=== PATIENT | male | born 1960 | race African-American/Black ===

== ENCOUNTER 2022-06-12 11:52 | Inpatient (IN) | payer OTHER ==
[2022-06-12 13:55] VITALS: BMI 20.6
[2022-06-12] MEDS ORDERED: LOPERAMIDE HCL 2 MG CAPSULE PO PRN (15:53)
[2022-06-12] MEDS ORDERED: BENZOCAINE/MENTHOL (CHLORASEPTIC ) LOZENGE MM PRN (15:53)
[2022-06-12] MEDS ORDERED: MAGNESIUM HYDROX 2400MG/30ML ORAL SUSPENSION 30 ML CUP PO PRN (15:53)
[2022-06-12] MEDS ORDERED: P-EPHED 60MG/TRIPROLIDI 2.5MG TABLET PO PRN (15:53)
[2022-06-12] MEDS ORDERED: guaiFENesin 200 MG/10 ML 10 ML UNIT-DOSE CUPS PO PRN (15:53)
[2022-06-12] MEDS ORDERED: ACETAMINOPHEN 325 MG TABLET (FP) PO PRN (15:53)
[2022-06-12] MEDS ORDERED: MAG HYDROX/AL HYDROX/SIMETH 30 ML UNIT-DOSE CUP PO PRN (15:53)
[2022-06-12] MEDS ORDERED: IBUPROFEN 400 MG TABLET (FP) PO PRN (15:53)
[2022-06-12] MEDS ORDERED: POLYETHYLENE GLYCOL (HEALTHYLAX) 3350 17 GM PACKET PO PRN (15:53)
[2022-06-12] MEDS ORDERED: TUBERCULIN PPD 5 TU/0.1ML VIAL ID ONE (19:35)
[2022-06-12] MEDS ORDERED: cloNIDine HCL 0.1 MG TABLET PO PRN (20:38)
[2022-06-12] MEDS: THIAMINE HCL 100 MG TABLET (FP) PO SCH (21:23)
[2022-06-12] MEDS: MELATONIN 5 MG TABLETS PO SCH (21:23)
[2022-06-12] MEDS: hydrALAZINE HCL 10 MG TABLET PO SCH (22:35)
[2022-06-12] MEDS: SACUBITRIL/VALSARTAN 49 MG-51 MG TABLET PO SCH (22:35)
[2022-06-12 23:50] LABS: URINE APPEARANCE CLEAR; URINE BILIRUBIN NEGATIVE (NEGATIVE); URINE COLOR YELLOW; URINE GLUCOSE (UA) NEGATIVE (NEGATIVE); URINE KETONE NEGATIVE (NEGATIVE); URINE LEUK ESTERASE NEGATIVE (NEGATIVE); URINE NITRITE NEGATIVE (NEGATIVE); URINE PROTEIN TRACE (NEGATIVE)
[2022-06-13] MEDS: hydrOXYzine PAMOATE 25 MG CAPSULE (FP) PO PRN (03:16)
[2022-06-13] MEDS: hydrALAZINE HCL 10 MG TABLET PO SCH ×3 (05:50→21:55)
[2022-06-13] MEDS: PRENATAL VITAMINS W/ FOLIC ACID TABLET (FP) PO SCH (09:59)
[2022-06-13] MEDS: ASPIRIN COATED 81 MG TABLET.EC PO SCH (09:59)
[2022-06-13] MEDS: SACUBITRIL/VALSARTAN 49 MG-51 MG TABLET PO SCH ×2 (10:00→21:07)
[2022-06-13] MEDS: NICOTINE 7 MG/24 HOURS TOPICAL PATCH TD SCH (10:00)
[2022-06-13] MEDS: FUROSEMIDE 20 MG TABLET (FP) PO SCH (10:00)
[2022-06-13] MEDS: AMMONIUM LACTATE 12% LOTION 225 GM BOTTLE TP SCH (10:01)
[2022-06-13 13:33] LABS: HEMATOCRIT 40.3 % (35.4-49); MCH 28.4 pg (25.7-33.7); MCHC 32.2 g/dl (32.0-35.9); MEAN CELL VOLUME 88.2 fl (80-96); MEAN PLT VOLUME 10.1 fl (7.5-11.1); PLATELET COUNT 214 10^3/uL (134-434); RBC 4.57 M/mm3 (4.00-5.60); RDW 13.2 % (11.9-15.9); WHITE BLOOD COUNT 5.9 K/mm3 (4.0-10.0)
[2022-06-13 13:39] LABS: SICKLE CELL SCREEN NEGATIVE (NEGATIVE)
[2022-06-13 16:15] LABS: ALBUMIN 2.7 g/dl (3.4-5.0)
[2022-06-13 16:16] LABS: BLOOD UREA NITROGEN 17.5 mg/dL (7-18)
[2022-06-13 16:19] LABS: CREATININE 0.9 mg/dL (0.55-1.3)
[2022-06-13 16:21] LABS: BILIRUBIN,TOTAL 0.2 mg/dL (0.2-1); TOT PROT 6.2 g/dl (6.4-8.2)
[2022-06-13] MEDS: THIAMINE HCL 100 MG TABLET (FP) PO SCH (21:06)
[2022-06-13] MEDS: MELATONIN 5 MG TABLETS PO SCH (21:06)
[2022-06-14] MEDS: hydrALAZINE HCL 10 MG TABLET PO SCH ×3 (06:07→21:18)
[2022-06-14] MEDS: NICOTINE 7 MG/24 HOURS TOPICAL PATCH TD SCH (09:46)
[2022-06-14] MEDS: PRENATAL VITAMINS W/ FOLIC ACID TABLET (FP) PO SCH (09:46)
[2022-06-14] MEDS: FUROSEMIDE 20 MG TABLET (FP) PO SCH (09:46)
[2022-06-14] MEDS: SACUBITRIL/VALSARTAN 49 MG-51 MG TABLET PO SCH ×2 (09:46→21:18)
[2022-06-14] MEDS: ASPIRIN COATED 81 MG TABLET.EC PO SCH (09:46)
[2022-06-14] MEDS: AMMONIUM LACTATE 12% LOTION 225 GM BOTTLE TP SCH (09:46)
[2022-06-14] MEDS ORDERED: cloNIDine HCL 0.1 MG TABLET PO ONE (10:54)
[2022-06-14] MEDS ORDERED: BUPRENORPHINE HCL 150 MCG, BUPRENORPHINE HCL 75 MCG BC ONE (10:54)
[2022-06-14] MEDS ORDERED: BUPRENORPHINE HCL 150 MCG, BUPRENORPHINE HCL 75 MCG BC PRN (10:54)
[2022-06-14] MEDS: BACLOFEN 10 MG TABLET (FP) PO SCH ×2 (13:04→21:18)
[2022-06-14] MEDS ORDERED: cloNIDine HCL 0.1 MG TABLET PO PRN (14:54)
[2022-06-14] MEDS: THIAMINE HCL 100 MG TABLET (FP) PO SCH (21:18)
[2022-06-14] MEDS: MELATONIN 5 MG TABLETS PO SCH (21:18)
[2022-06-15] MEDS ORDERED: BUPRENORPHINE HCL 150 MCG, BUPRENORPHINE HCL 75 MCG BC PRN
[2022-06-15] MEDS: hydrALAZINE HCL 10 MG TABLET PO SCH ×3 (06:02→21:12)
[2022-06-15] MEDS: BUPRENORPHINE HCL 150 MCG, BUPRENORPHINE HCL 75 MCG BC SCH ×2 (06:03→18:28)
[2022-06-15] MEDS: BACLOFEN 10 MG TABLET (FP) PO SCH ×3 (06:03→21:11)
[2022-06-15] MEDS: FUROSEMIDE 20 MG TABLET (FP) PO SCH (10:10)
[2022-06-15] MEDS: NICOTINE 7 MG/24 HOURS TOPICAL PATCH TD SCH (10:11)
[2022-06-15] MEDS: AMMONIUM LACTATE 12% LOTION 225 GM BOTTLE TP SCH (10:11)
[2022-06-15] MEDS: SACUBITRIL/VALSARTAN 49 MG-51 MG TABLET PO SCH ×2 (10:11→21:12)
[2022-06-15] MEDS: PRENATAL VITAMINS W/ FOLIC ACID TABLET (FP) PO SCH (10:11)
[2022-06-15] MEDS: ASPIRIN COATED 81 MG TABLET.EC PO SCH (10:11)
[2022-06-15] MEDS: MELATONIN 5 MG TABLETS PO SCH (21:12)
[2022-06-15] MEDS: THIAMINE HCL 100 MG TABLET (FP) PO SCH (21:12)
[2022-06-16] MEDS: hydrALAZINE HCL 10 MG TABLET PO SCH ×3 (06:27→21:10)
[2022-06-16] MEDS: BACLOFEN 10 MG TABLET (FP) PO SCH ×3 (06:27→21:11)
[2022-06-16] MEDS: BUPRENORPHINE HCL 450 MCG FILM BC SCH ×2 (06:28→17:35)
[2022-06-16] MEDS: PRENATAL VITAMINS W/ FOLIC ACID TABLET (FP) PO SCH (09:47)
[2022-06-16] MEDS: ASPIRIN COATED 81 MG TABLET.EC PO SCH (09:48)
[2022-06-16] MEDS: AMMONIUM LACTATE 12% LOTION 225 GM BOTTLE TP SCH (09:48)
[2022-06-16] MEDS: SACUBITRIL/VALSARTAN 49 MG-51 MG TABLET PO SCH ×2 (09:48→21:11)
[2022-06-16] MEDS: NICOTINE 7 MG/24 HOURS TOPICAL PATCH TD SCH (09:48)
[2022-06-16] MEDS: FUROSEMIDE 20 MG TABLET (FP) PO SCH (09:48)
[2022-06-16] MEDS: THIAMINE HCL 100 MG TABLET (FP) PO SCH (21:10)
[2022-06-16] MEDS: MELATONIN 5 MG TABLETS PO SCH (21:10)
[2022-06-16] MEDS: hydrOXYzine PAMOATE 25 MG CAPSULE (FP) PO PRN (21:11)
[2022-06-17] MEDS: hydrALAZINE HCL 10 MG TABLET PO SCH ×3 (05:52→21:13)
[2022-06-17] MEDS: BACLOFEN 10 MG TABLET (FP) PO SCH ×3 (05:52→21:12)
[2022-06-17] MEDS: BUPRENORPHINE/NALOXONE 4 MG/1 MG FILM PACKET SL SCH ×2 (05:52→18:35)
[2022-06-17] MEDS: NICOTINE 7 MG/24 HOURS TOPICAL PATCH TD SCH (09:43)
[2022-06-17] MEDS: ASPIRIN COATED 81 MG TABLET.EC PO SCH (09:43)
[2022-06-17] MEDS: FUROSEMIDE 20 MG TABLET (FP) PO SCH (09:43)
[2022-06-17] MEDS: PRENATAL VITAMINS W/ FOLIC ACID TABLET (FP) PO SCH (09:43)
[2022-06-17] MEDS: SACUBITRIL/VALSARTAN 49 MG-51 MG TABLET PO SCH ×2 (09:44→21:13)
[2022-06-17] MEDS: AMMONIUM LACTATE 12% LOTION 225 GM BOTTLE TP SCH (09:44)
[2022-06-17] MEDS: hydrOXYzine PAMOATE 25 MG CAPSULE (FP) PO PRN (16:49)
[2022-06-17] MEDS: MELATONIN 5 MG TABLETS PO SCH (21:12)
[2022-06-17] MEDS: THIAMINE HCL 100 MG TABLET (FP) PO SCH (21:12)
[2022-06-18] MEDS ORDERED: BUPRENORPHINE/NALOXONE 8 MG/2 MG FILM PACKET SL ONE ×2 (06:00→18:00)
[2022-06-18] MEDS: BACLOFEN 10 MG TABLET (FP) PO SCH ×3 (06:13→21:15)
[2022-06-18] MEDS: hydrALAZINE HCL 10 MG TABLET PO SCH ×3 (06:13→21:14)
[2022-06-18] MEDS: FUROSEMIDE 20 MG TABLET (FP) PO SCH (09:42)
[2022-06-18] MEDS: PRENATAL VITAMINS W/ FOLIC ACID TABLET (FP) PO SCH (09:42)
[2022-06-18] MEDS: SACUBITRIL/VALSARTAN 49 MG-51 MG TABLET PO SCH ×2 (09:42→21:15)
[2022-06-18] MEDS: AMMONIUM LACTATE 12% LOTION 225 GM BOTTLE TP SCH (09:43)
[2022-06-18] MEDS: NICOTINE 7 MG/24 HOURS TOPICAL PATCH TD SCH (10:20)
[2022-06-18] MEDS: ASPIRIN COATED 81 MG TABLET.EC PO SCH (11:01)
[2022-06-18] MEDS: ACYCLOVIR 400 MG TABLET PO SCH ×2 (15:43→21:15)
[2022-06-18] MEDS: THIAMINE HCL 100 MG TABLET (FP) PO SCH (21:14)
[2022-06-18] MEDS: MELATONIN 5 MG TABLETS PO SCH (21:15)
[2022-06-19] MEDS: BACLOFEN 10 MG TABLET (FP) PO SCH ×3 (05:46→21:10)
[2022-06-19] MEDS: hydrALAZINE HCL 10 MG TABLET PO SCH ×3 (05:46→21:10)
[2022-06-19] MEDS: ACYCLOVIR 400 MG TABLET PO SCH ×3 (05:46→21:10)
[2022-06-19] MEDS: PRENATAL VITAMINS W/ FOLIC ACID TABLET (FP) PO SCH (09:42)
[2022-06-19] MEDS: AMMONIUM LACTATE 12% LOTION 225 GM BOTTLE TP SCH (09:43)
[2022-06-19] MEDS: ASPIRIN COATED 81 MG TABLET.EC PO SCH (09:43)
[2022-06-19] MEDS: SACUBITRIL/VALSARTAN 49 MG-51 MG TABLET PO SCH ×2 (09:43→21:10)
[2022-06-19] MEDS: FUROSEMIDE 20 MG TABLET (FP) PO SCH (09:43)
[2022-06-19] MEDS: BUPRENORPHINE/NALOXONE 8 MG/2 MG FILM PACKET SL SCH (09:44)
[2022-06-19] MEDS: NICOTINE 7 MG/24 HOURS TOPICAL PATCH TD SCH (09:44)
[2022-06-19] MEDS: THIAMINE HCL 100 MG TABLET (FP) PO SCH (21:10)
[2022-06-19] MEDS: MELATONIN 5 MG TABLETS PO SCH (21:10)
[2022-06-20] MEDS: ACYCLOVIR 400 MG TABLET PO SCH ×3 (06:37→21:15)
[2022-06-20] MEDS: hydrALAZINE HCL 10 MG TABLET PO SCH ×3 (06:37→21:15)
[2022-06-20] MEDS: BACLOFEN 10 MG TABLET (FP) PO SCH ×3 (06:37→21:15)
[2022-06-20] MEDS: hydrOXYzine PAMOATE 25 MG CAPSULE (FP) PO PRN (06:38)
[2022-06-20] MEDS: FUROSEMIDE 20 MG TABLET (FP) PO SCH (09:58)
[2022-06-20] MEDS: SACUBITRIL/VALSARTAN 49 MG-51 MG TABLET PO SCH ×2 (09:59→21:15)
[2022-06-20] MEDS: AMMONIUM LACTATE 12% LOTION 225 GM BOTTLE TP SCH (09:59)
[2022-06-20] MEDS: ASPIRIN COATED 81 MG TABLET.EC PO SCH (09:59)
[2022-06-20] MEDS: PRENATAL VITAMINS W/ FOLIC ACID TABLET (FP) PO SCH (09:59)
[2022-06-20] MEDS: NICOTINE 7 MG/24 HOURS TOPICAL PATCH TD SCH (09:59)
[2022-06-20] MEDS: BUPRENORPHINE/NALOXONE 8 MG/2 MG FILM PACKET SL SCH (09:59)
[2022-06-20] MEDS: NICOTINE 10 MG CARTRIDGE (INHALER) IH PRN (09:59)
[2022-06-20] MEDS: THIAMINE HCL 100 MG TABLET (FP) PO SCH (21:15)
[2022-06-20] MEDS: SUVOREXANT 10 MG TABLET PO PRN (21:16)
[2022-06-21] MEDS: BACLOFEN 10 MG TABLET (FP) PO SCH ×3 (06:16→21:12)
[2022-06-21] MEDS: ACYCLOVIR 400 MG TABLET PO SCH ×3 (06:16→21:12)
[2022-06-21] MEDS: hydrALAZINE HCL 10 MG TABLET PO SCH ×3 (06:16→21:12)
[2022-06-21] MEDS: hydrOXYzine PAMOATE 25 MG CAPSULE (FP) PO PRN (06:16)
[2022-06-21] MEDS: PRENATAL VITAMINS W/ FOLIC ACID TABLET (FP) PO SCH (09:45)
[2022-06-21] MEDS: NICOTINE 7 MG/24 HOURS TOPICAL PATCH TD SCH (09:45)
[2022-06-21] MEDS: ASPIRIN COATED 81 MG TABLET.EC PO SCH (09:45)
[2022-06-21] MEDS: BUPRENORPHINE/NALOXONE 8 MG/2 MG FILM PACKET SL SCH (09:45)
[2022-06-21] MEDS: AMMONIUM LACTATE 12% LOTION 225 GM BOTTLE TP SCH (09:47)
[2022-06-21] MEDS: FUROSEMIDE 20 MG TABLET (FP) PO SCH (10:09)
[2022-06-21] MEDS: SACUBITRIL/VALSARTAN 49 MG-51 MG TABLET PO SCH ×2 (10:09→21:12)
[2022-06-21] MEDS ORDERED: CALAMINE 8% TOPICAL LOTION 177 ML BOTTLE TP PRN (11:17)
[2022-06-21] MEDS: THIAMINE HCL 100 MG TABLET (FP) PO SCH (21:12)
[2022-06-21] MEDS: SUVOREXANT 10 MG TABLET PO PRN (21:13)
[2022-06-22] MEDS: ACYCLOVIR 400 MG TABLET PO SCH ×3 (06:09→21:18)
[2022-06-22] MEDS: hydrALAZINE HCL 10 MG TABLET PO SCH ×3 (06:09→21:18)
[2022-06-22] MEDS: BACLOFEN 10 MG TABLET (FP) PO SCH ×3 (06:09→21:18)
[2022-06-22] MEDS: PRENATAL VITAMINS W/ FOLIC ACID TABLET (FP) PO SCH (09:39)
[2022-06-22] MEDS: AMMONIUM LACTATE 12% LOTION 225 GM BOTTLE TP SCH ×2 (09:39→10:13)
[2022-06-22] MEDS: SACUBITRIL/VALSARTAN 49 MG-51 MG TABLET PO SCH ×2 (11:17→21:18)
[2022-06-22] MEDS: FUROSEMIDE 20 MG TABLET (FP) PO SCH (11:17)
[2022-06-22] MEDS: NICOTINE 7 MG/24 HOURS TOPICAL PATCH TD SCH (11:17)
[2022-06-22] MEDS: ASPIRIN COATED 81 MG TABLET.EC PO SCH (11:17)
[2022-06-22] MEDS: BUPRENORPHINE/NALOXONE 8 MG/2 MG FILM PACKET SL SCH (11:18)
[2022-06-22] MEDS: SUVOREXANT 10 MG TABLET PO PRN (21:18)
[2022-06-22] MEDS: THIAMINE HCL 100 MG TABLET (FP) PO SCH (21:18)
[2022-06-23] MEDS: hydrALAZINE HCL 10 MG TABLET PO SCH ×3 (05:47→21:31)
[2022-06-23] MEDS: ACYCLOVIR 400 MG TABLET PO SCH ×3 (05:47→21:31)
[2022-06-23] MEDS: BACLOFEN 10 MG TABLET (FP) PO SCH ×3 (05:47→21:30)
[2022-06-23] MEDS: ASPIRIN COATED 81 MG TABLET.EC PO SCH (09:48)
[2022-06-23] MEDS: PRENATAL VITAMINS W/ FOLIC ACID TABLET (FP) PO SCH (09:48)
[2022-06-23] MEDS: SACUBITRIL/VALSARTAN 49 MG-51 MG TABLET PO SCH ×2 (09:50→21:31)
[2022-06-23] MEDS: AMMONIUM LACTATE 12% LOTION 225 GM BOTTLE TP SCH (09:51)
[2022-06-23] MEDS: FUROSEMIDE 20 MG TABLET (FP) PO SCH (09:51)
[2022-06-23] MEDS: NICOTINE 7 MG/24 HOURS TOPICAL PATCH TD SCH (09:52)
[2022-06-23] MEDS: BUPRENORPHINE/NALOXONE 8 MG/2 MG FILM PACKET SL SCH (09:52)
[2022-06-23] MEDS: THIAMINE HCL 100 MG TABLET (FP) PO SCH (21:30)
[2022-06-23] MEDS: SUVOREXANT 10 MG TABLET PO PRN (21:32)
[2022-06-24] MEDS: hydrALAZINE HCL 10 MG TABLET PO SCH ×3 (05:48→21:28)
[2022-06-24] MEDS: BACLOFEN 10 MG TABLET (FP) PO SCH ×3 (05:48→21:28)
[2022-06-24] MEDS: ACYCLOVIR 400 MG TABLET PO SCH ×3 (05:48→21:30)
[2022-06-24] MEDS: FUROSEMIDE 20 MG TABLET (FP) PO SCH (09:39)
[2022-06-24] MEDS: ASPIRIN COATED 81 MG TABLET.EC PO SCH (09:39)
[2022-06-24] MEDS: PRENATAL VITAMINS W/ FOLIC ACID TABLET (FP) PO SCH (09:39)
[2022-06-24] MEDS: SACUBITRIL/VALSARTAN 49 MG-51 MG TABLET PO SCH ×2 (09:39→21:28)
[2022-06-24] MEDS: BUPRENORPHINE/NALOXONE 8 MG/2 MG FILM PACKET SL SCH (09:40)
[2022-06-24] MEDS: AMMONIUM LACTATE 12% LOTION 225 GM BOTTLE TP SCH (09:40)
[2022-06-24] MEDS: NICOTINE 7 MG/24 HOURS TOPICAL PATCH TD SCH (09:40)
[2022-06-24] MEDS: THIAMINE HCL 100 MG TABLET (FP) PO SCH (21:29)
[2022-06-24] MEDS: SUVOREXANT 10 MG TABLET PO PRN (21:30)
[2022-06-25] MEDS: BACLOFEN 10 MG TABLET (FP) PO SCH ×3 (06:32→21:22)
[2022-06-25] MEDS: ACYCLOVIR 400 MG TABLET PO SCH ×3 (06:32→21:22)
[2022-06-25] MEDS: hydrALAZINE HCL 10 MG TABLET PO SCH ×3 (06:32→21:22)
[2022-06-25] MEDS: ASPIRIN COATED 81 MG TABLET.EC PO SCH (10:24)
[2022-06-25] MEDS: BUPRENORPHINE/NALOXONE 8 MG/2 MG FILM PACKET SL SCH (10:24)
[2022-06-25] MEDS: SACUBITRIL/VALSARTAN 49 MG-51 MG TABLET PO SCH ×2 (10:24→21:22)
[2022-06-25] MEDS: AMMONIUM LACTATE 12% LOTION 225 GM BOTTLE TP SCH (10:25)
[2022-06-25] MEDS: FUROSEMIDE 20 MG TABLET (FP) PO SCH (10:25)
[2022-06-25] MEDS: PRENATAL VITAMINS W/ FOLIC ACID TABLET (FP) PO SCH (10:25)
[2022-06-25] MEDS: NICOTINE 7 MG/24 HOURS TOPICAL PATCH TD SCH (10:25)
[2022-06-25] MEDS ORDERED: MODERNA COVID-19 VACC,MRNA/PF 50 MCG/0.25 ML EACH IM ONE (16:28)
[2022-06-25] MEDS: THIAMINE HCL 100 MG TABLET (FP) PO SCH (21:22)
[2022-06-25] MEDS: SUVOREXANT 15 MG TABLET PO PRN (21:23)
[2022-06-26] MEDS: BACLOFEN 10 MG TABLET (FP) PO SCH ×3 (06:19→21:23)
[2022-06-26] MEDS: hydrALAZINE HCL 10 MG TABLET PO SCH ×3 (06:19→21:23)
[2022-06-26] MEDS: ACYCLOVIR 400 MG TABLET PO SCH ×3 (06:20→21:23)
[2022-06-26] MEDS: PRENATAL VITAMINS W/ FOLIC ACID TABLET (FP) PO SCH (09:48)
[2022-06-26] MEDS: ASPIRIN COATED 81 MG TABLET.EC PO SCH (09:48)
[2022-06-26] MEDS: FUROSEMIDE 20 MG TABLET (FP) PO SCH (10:46)
[2022-06-26] MEDS: SACUBITRIL/VALSARTAN 49 MG-51 MG TABLET PO SCH ×2 (10:46→21:23)
[2022-06-26] MEDS: AMMONIUM LACTATE 12% LOTION 225 GM BOTTLE TP SCH (10:47)
[2022-06-26] MEDS: BUPRENORPHINE/NALOXONE 8 MG/2 MG FILM PACKET SL SCH (10:47)
[2022-06-26] MEDS: NICOTINE 7 MG/24 HOURS TOPICAL PATCH TD SCH (10:47)
[2022-06-26] MEDS: THIAMINE HCL 100 MG TABLET (FP) PO SCH (21:23)
[2022-06-26] MEDS: SUVOREXANT 15 MG TABLET PO PRN (21:24)
[2022-06-27] MEDS: ACYCLOVIR 400 MG TABLET PO SCH ×3 (06:36→21:22)
[2022-06-27] MEDS: hydrALAZINE HCL 10 MG TABLET PO SCH ×3 (06:36→21:22)
[2022-06-27] MEDS: BACLOFEN 10 MG TABLET (FP) PO SCH ×3 (06:37→21:22)
[2022-06-27] MEDS: AMMONIUM LACTATE 12% LOTION 225 GM BOTTLE TP SCH (09:33)
[2022-06-27] MEDS: SACUBITRIL/VALSARTAN 49 MG-51 MG TABLET PO SCH ×2 (09:33→21:22)
[2022-06-27] MEDS: PRENATAL VITAMINS W/ FOLIC ACID TABLET (FP) PO SCH (09:33)
[2022-06-27] MEDS: BUPRENORPHINE/NALOXONE 8 MG/2 MG FILM PACKET SL SCH (09:33)
[2022-06-27] MEDS: NICOTINE 7 MG/24 HOURS TOPICAL PATCH TD SCH (09:33)
[2022-06-27] MEDS: ASPIRIN COATED 81 MG TABLET.EC PO SCH (09:33)
[2022-06-27] MEDS: FUROSEMIDE 20 MG TABLET (FP) PO SCH (09:33)
[2022-06-27] MEDS: SUVOREXANT 15 MG TABLET PO PRN (21:22)
[2022-06-27] MEDS: THIAMINE HCL 100 MG TABLET (FP) PO SCH (21:22)
[2022-06-28] MEDS: ACYCLOVIR 400 MG TABLET PO SCH ×3 (05:59→21:12)
[2022-06-28] MEDS: hydrALAZINE HCL 10 MG TABLET PO SCH ×3 (06:00→21:12)
[2022-06-28] MEDS: BACLOFEN 10 MG TABLET (FP) PO SCH ×3 (06:00→21:12)
[2022-06-28] MEDS: SACUBITRIL/VALSARTAN 49 MG-51 MG TABLET PO SCH ×2 (09:58→21:12)
[2022-06-28] MEDS: BUPRENORPHINE/NALOXONE 8 MG/2 MG FILM PACKET SL SCH (09:58)
[2022-06-28] MEDS: ASPIRIN COATED 81 MG TABLET.EC PO SCH (09:58)
[2022-06-28] MEDS: FUROSEMIDE 20 MG TABLET (FP) PO SCH (09:58)
[2022-06-28] MEDS: AMMONIUM LACTATE 12% LOTION 225 GM BOTTLE TP SCH (09:59)
[2022-06-28] MEDS: NICOTINE 7 MG/24 HOURS TOPICAL PATCH TD SCH (09:59)
[2022-06-28] MEDS: PRENATAL VITAMINS W/ FOLIC ACID TABLET (FP) PO SCH (09:59)
[2022-06-28] MEDS ORDERED: COVID 19 MRNA VACCINE IM ONE (12:00)
[2022-06-28] MEDS: NICOTINE 10 MG CARTRIDGE (INHALER) IH PRN (16:34)
[2022-06-28] MEDS: SUVOREXANT 15 MG TABLET PO PRN (21:12)
[2022-06-28] MEDS: THIAMINE HCL 100 MG TABLET (FP) PO SCH (21:12)
[2022-06-29] MEDS: ACYCLOVIR 400 MG TABLET PO SCH ×3 (06:17→21:21)
[2022-06-29] MEDS: hydrALAZINE HCL 10 MG TABLET PO SCH ×3 (06:17→21:21)
[2022-06-29] MEDS: BACLOFEN 10 MG TABLET (FP) PO SCH ×3 (06:17→21:21)
[2022-06-29] MEDS: NICOTINE 7 MG/24 HOURS TOPICAL PATCH TD SCH (09:37)
[2022-06-29] MEDS: PRENATAL VITAMINS W/ FOLIC ACID TABLET (FP) PO SCH (09:37)
[2022-06-29] MEDS: AMMONIUM LACTATE 12% LOTION 225 GM BOTTLE TP SCH (09:37)
[2022-06-29] MEDS: FUROSEMIDE 20 MG TABLET (FP) PO SCH (09:37)
[2022-06-29] MEDS: ASPIRIN COATED 81 MG TABLET.EC PO SCH (09:38)
[2022-06-29] MEDS: SACUBITRIL/VALSARTAN 49 MG-51 MG TABLET PO SCH ×2 (09:38→21:21)
[2022-06-29] MEDS: BUPRENORPHINE/NALOXONE 8 MG/2 MG FILM PACKET SL SCH (09:38)
[2022-06-29] MEDS: SUVOREXANT 15 MG TABLET PO PRN (21:22)
[2022-06-29] MEDS: THIAMINE HCL 100 MG TABLET (FP) PO SCH (21:22)
[2022-06-30] MEDS: ACYCLOVIR 400 MG TABLET PO SCH ×3 (06:30→21:21)
[2022-06-30] MEDS: BACLOFEN 10 MG TABLET (FP) PO SCH ×3 (06:30→21:21)
[2022-06-30] MEDS: hydrALAZINE HCL 10 MG TABLET PO SCH ×3 (06:30→21:21)
[2022-06-30] MEDS: NICOTINE 7 MG/24 HOURS TOPICAL PATCH TD SCH (09:44)
[2022-06-30] MEDS: PRENATAL VITAMINS W/ FOLIC ACID TABLET (FP) PO SCH (09:44)
[2022-06-30] MEDS: SACUBITRIL/VALSARTAN 49 MG-51 MG TABLET PO SCH ×2 (09:45→21:21)
[2022-06-30] MEDS: AMMONIUM LACTATE 12% LOTION 225 GM BOTTLE TP SCH (09:45)
[2022-06-30] MEDS: FUROSEMIDE 20 MG TABLET (FP) PO SCH (09:45)
[2022-06-30] MEDS: BUPRENORPHINE/NALOXONE 8 MG/2 MG FILM PACKET SL SCH (09:45)
[2022-06-30] MEDS: ASPIRIN COATED 81 MG TABLET.EC PO SCH (09:45)
[2022-06-30] MEDS: THIAMINE HCL 100 MG TABLET (FP) PO SCH (21:20)
[2022-06-30] MEDS: SUVOREXANT 15 MG TABLET PO PRN (21:21)
[2022-07-01] MEDS: ACYCLOVIR 400 MG TABLET PO SCH ×3 (06:20→21:19)
[2022-07-01] MEDS: BACLOFEN 10 MG TABLET (FP) PO SCH ×3 (06:20→21:19)
[2022-07-01] MEDS: hydrALAZINE HCL 10 MG TABLET PO SCH ×3 (06:20→21:19)
[2022-07-01] MEDS: NICOTINE 7 MG/24 HOURS TOPICAL PATCH TD SCH (10:05)
[2022-07-01] MEDS: FUROSEMIDE 20 MG TABLET (FP) PO SCH (10:05)
[2022-07-01] MEDS: SACUBITRIL/VALSARTAN 49 MG-51 MG TABLET PO SCH ×2 (10:05→21:19)
[2022-07-01] MEDS: PRENATAL VITAMINS W/ FOLIC ACID TABLET (FP) PO SCH (10:05)
[2022-07-01] MEDS: BUPRENORPHINE/NALOXONE 8 MG/2 MG FILM PACKET SL SCH (10:05)
[2022-07-01] MEDS: ASPIRIN COATED 81 MG TABLET.EC PO SCH (10:05)
[2022-07-01] MEDS: AMMONIUM LACTATE 12% LOTION 225 GM BOTTLE TP SCH (10:07)
[2022-07-01] MEDS: THIAMINE HCL 100 MG TABLET (FP) PO SCH (21:19)
[2022-07-01] MEDS: SUVOREXANT 5 MG TABLET PO PRN (21:20)
[2022-07-02] MEDS: ACYCLOVIR 400 MG TABLET PO SCH (05:52)
[2022-07-02] MEDS: hydrALAZINE HCL 10 MG TABLET PO SCH ×3 (05:53→21:21)
[2022-07-02] MEDS: BACLOFEN 10 MG TABLET (FP) PO SCH ×3 (05:53→21:21)
[2022-07-02] MEDS: ASPIRIN COATED 81 MG TABLET.EC PO SCH (09:33)
[2022-07-02] MEDS: FUROSEMIDE 20 MG TABLET (FP) PO SCH (09:34)
[2022-07-02] MEDS: BUPRENORPHINE/NALOXONE 8 MG/2 MG FILM PACKET SL SCH (09:34)
[2022-07-02] MEDS: AMMONIUM LACTATE 12% LOTION 225 GM BOTTLE TP SCH (09:34)
[2022-07-02] MEDS: SACUBITRIL/VALSARTAN 49 MG-51 MG TABLET PO SCH ×2 (09:34→21:45)
[2022-07-02] MEDS: PRENATAL VITAMINS W/ FOLIC ACID TABLET (FP) PO SCH (09:34)
[2022-07-02] MEDS: NICOTINE 7 MG/24 HOURS TOPICAL PATCH TD SCH (09:34)
[2022-07-02] MEDS: THIAMINE HCL 100 MG TABLET (FP) PO SCH (21:21)
[2022-07-02] MEDS: SUVOREXANT 5 MG TABLET PO PRN (21:21)
[2022-07-03] MEDS: BACLOFEN 10 MG TABLET (FP) PO SCH ×3 (06:01→21:08)
[2022-07-03] MEDS: hydrALAZINE HCL 10 MG TABLET PO SCH ×3 (06:01→21:08)
[2022-07-03] MEDS: ASPIRIN COATED 81 MG TABLET.EC PO SCH (09:28)
[2022-07-03] MEDS: FUROSEMIDE 20 MG TABLET (FP) PO SCH (09:28)
[2022-07-03] MEDS: PRENATAL VITAMINS W/ FOLIC ACID TABLET (FP) PO SCH (09:28)
[2022-07-03] MEDS: NICOTINE 7 MG/24 HOURS TOPICAL PATCH TD SCH (09:29)
[2022-07-03] MEDS: BUPRENORPHINE/NALOXONE 8 MG/2 MG FILM PACKET SL SCH (09:29)
[2022-07-03] MEDS: SACUBITRIL/VALSARTAN 49 MG-51 MG TABLET PO SCH ×2 (09:29→21:09)
[2022-07-03] MEDS: AMMONIUM LACTATE 12% LOTION 225 GM BOTTLE TP SCH (09:29)
[2022-07-03] MEDS: THIAMINE HCL 100 MG TABLET (FP) PO SCH (21:08)
[2022-07-03] MEDS: SUVOREXANT 15 MG TABLET PO PRN (21:09)
[2022-07-04] MEDS: hydrALAZINE HCL 10 MG TABLET PO SCH ×3 (06:22→21:12)
[2022-07-04] MEDS: BACLOFEN 10 MG TABLET (FP) PO SCH ×3 (06:22→21:12)
[2022-07-04] MEDS: PRENATAL VITAMINS W/ FOLIC ACID TABLET (FP) PO SCH (09:20)
[2022-07-04] MEDS: NICOTINE 7 MG/24 HOURS TOPICAL PATCH TD SCH (09:20)
[2022-07-04] MEDS: AMMONIUM LACTATE 12% LOTION 225 GM BOTTLE TP SCH (09:20)
[2022-07-04] MEDS: ASPIRIN COATED 81 MG TABLET.EC PO SCH (09:20)
[2022-07-04] MEDS: BUPRENORPHINE/NALOXONE 8 MG/2 MG FILM PACKET SL SCH (09:20)
[2022-07-04] MEDS: FUROSEMIDE 20 MG TABLET (FP) PO SCH (09:20)
[2022-07-04] MEDS: SACUBITRIL/VALSARTAN 49 MG-51 MG TABLET PO SCH ×2 (09:20→21:12)
[2022-07-04] MEDS ORDERED: NICOTINE 7 MG/24 HOURS TOPICAL PATCH TD PRN (16:57)
[2022-07-04] MEDS: SUVOREXANT 15 MG TABLET PO PRN (21:12)
[2022-07-04] MEDS: THIAMINE HCL 100 MG TABLET (FP) PO SCH (21:12)
[2022-07-05] MEDS: hydrALAZINE HCL 10 MG TABLET PO SCH ×3 (05:56→21:22)
[2022-07-05] MEDS: BACLOFEN 10 MG TABLET (FP) PO SCH ×3 (05:56→21:22)
[2022-07-05] MEDS: AMMONIUM LACTATE 12% LOTION 225 GM BOTTLE TP SCH (09:16)
[2022-07-05] MEDS: ASPIRIN COATED 81 MG TABLET.EC PO SCH (09:16)
[2022-07-05] MEDS: BUPRENORPHINE/NALOXONE 8 MG/2 MG FILM PACKET SL SCH (09:16)
[2022-07-05] MEDS: PRENATAL VITAMINS W/ FOLIC ACID TABLET (FP) PO SCH (09:16)
[2022-07-05] MEDS: SACUBITRIL/VALSARTAN 49 MG-51 MG TABLET PO SCH ×2 (09:16→21:22)
[2022-07-05] MEDS: FUROSEMIDE 20 MG TABLET (FP) PO SCH (09:16)
[2022-07-05] MEDS: THIAMINE HCL 100 MG TABLET (FP) PO SCH (21:22)
[2022-07-05] MEDS: SUVOREXANT 15 MG TABLET PO PRN (21:22)
[2022-07-06] MEDS: hydrALAZINE HCL 10 MG TABLET PO SCH (06:11)
[2022-07-06] MEDS: BACLOFEN 10 MG TABLET (FP) PO SCH (06:11)
[2022-07-06 07:20] VITALS: BP 112/83; PULSE 103; RESP 18; TEMP 98
[2022-07-06] MEDS: FUROSEMIDE 20 MG TABLET (FP) PO SCH (09:26)
[2022-07-06] MEDS: SACUBITRIL/VALSARTAN 49 MG-51 MG TABLET PO SCH (09:26)
[2022-07-06] MEDS: PRENATAL VITAMINS W/ FOLIC ACID TABLET (FP) PO SCH (09:26)
[2022-07-06] MEDS: ASPIRIN COATED 81 MG TABLET.EC PO SCH (09:26)
[2022-07-06] MEDS: BUPRENORPHINE/NALOXONE 8 MG/2 MG FILM PACKET SL SCH (09:27)
[2022-07-06] MEDS: AMMONIUM LACTATE 12% LOTION 225 GM BOTTLE TP SCH (09:28)
== END 2022-07-06 09:36 | disposition home or self-care (01) | DRG 772 ==
LOC: YASAS 11:52 → Y3W 19:01
PROVIDERS: ADMIT Allergy & Immunology; ATTEND Surgery
PROC: HZ42ZZZ Group Counseling for Substance Abuse Treatment, Cognitive-Behavioral (ICD-10-PCS; principal; 2022-06-12)
DX: F11.20 Opioid dependence, uncomplicated (principal); F14.20 Cocaine dependence, uncomplicated; F17.210 Nicotine dependence, cigarettes, uncomplicated; F19.24 Other psychoactive substance dependence with psychoactive substance-induced mood disorder; F41.9 Anxiety disorder, unspecified; F32.A Depression, unspecified; I11.0 Hypertensive heart disease with heart failure; I50.9 Heart failure, unspecified; L30.9 Dermatitis, unspecified; L85.3 Xerosis cutis; K13.0 Diseases of lips; R21 Rash and other nonspecific skin eruption; Z98.61 Coronary angioplasty status; Z86.19 Personal history of other infectious and parasitic diseases
CPT/HCPCS: 0134A; 36415; 80053; 81003; 82962; 85027; 85660; 86780; 87811; 91313; 93005; 93010; C9803-CS; J0475; U0003; U0005